=== PATIENT | female | born 1965 | race Caucasian/White ===

== ENCOUNTER → 2021-08-10 09:10 | Outpatient (BNVA) | payer SELFPAY | PROVIDERS: Visit Provider Internal Medicine | DX: Z02.79 Encounter for issue of other medical certificate (principal) ==

== ENCOUNTER → 2021-12-04 10:10 | Outpatient (BNVA) | payer SELFPAY | PROVIDERS: Visit Provider Internal Medicine | DX: Z02.79 Encounter for issue of other medical certificate (principal) ==

== ENCOUNTER → 2022-07-04 10:14 | Outpatient (BNVA) | payer SELFPAY | PROVIDERS: Visit Provider Internal Medicine | DX: Z02.79 Encounter for issue of other medical certificate (principal) ==

== ENCOUNTER → 2023-06-23 09:59 | Outpatient (BNVA) | payer SELFPAY | PROVIDERS: Visit Provider Physician Assistant Medical | DX: Z02.79 Encounter for issue of other medical certificate (principal) ==

== ENCOUNTER 2023-10-22 07:53 | Outpatient (AMB) | payer OTHER, SELFPAY ==
[2023-10-22 07:58] VITALS: BP 130/82; PULSE 78; O2SAT 98; BMI 36.5
--- NOTE | 2023-10-22 07:58 | A.OFFPC_ITS ---
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 Allergies No Known Allergies Allergy (Verified 10/22/23 08:30) Medication List - Last Reconciled 10/22/23 by Caesar Wang MD No Known Home Meds Tobacco use date assessed: 10/22/23 Dental Screening Dental Screen Date: 10/22/23 Did you have a dental visit in the last 12 months?: Yes Did you have a dental problem in the last 6 months where you did not have access to dental care?: No Was dental information given to patient?: 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 Patient is transferring her care [place] as her primary care provider has left the practice. Patient gets a rash on the abdomen and around the breast area. Currently she does not have the rash but usually comes in the summer. Slightly itchy but fade away quickly. Patient is concerned would the rash could be. She used to swim at the [facility] and has discontinued because she feared the rash was coming from swimming. Has not had a mammogram or colonoscopy done yet. PENDING SALE TO [facility] Medical History (Updated 10/22/23 @ 08:38 by Caesar Wang MD) Class 2 severe obesity with body mass index (BMI) of 35 to 39.9 with serious comorbidity Family History Mother No problems noted. Father No problems noted. Daughter Substance use disorder Daughter No problems noted. Son No problems noted. Other Mental health disorder Social History Housing: House Patient Tobacco Use Status: Former Tobacco user Tobacco use type: Cigarette e-Cigarette/Vaping Use: Currently Using Second Hand Smoke Exposure: Yes Current occupational status: employed Current occupation: [employer] Cognitive needs: No Hearing needs: No Vision needs: Yes Questionnaire PHQ-9 Over the last 2 weeks, how often have you been bothered by any of the following problems? 1. Little interest or pleasure in doing things: not at all 2. Feeling down, depressed, or hopeless: not at all 3. Trouble falling or staying asleep, or sleeping too much: not at all 4. Feeling tired or having little energy: not at all 5. Poor appetite or overeating: not at all 6. Feeling bad about yourself - or that you are a failure or have let yourself or your family down: not at all 7. Trouble concentrating on things, such as reading the newspaper or watching television: not at all 8. Moving or speaking so slowly that other people could have noticed. Or the opposite - being so fidgety or restless that you have been moving around a lot more than usual: not at all 9. Thoughts that you would be better off or of hurting yourself in some way: not at all Total score: 0 Depression Screening Interpretation: Negative Depression Screening Done: Yes Source: Developed by Drs. Jl Salvador, Angie Ramirez, Zheng Stanton and colleagues, with an educational melquiades from [employer]. Thrive Questionnaire Date Thrive assessed: 10/22/23 I am a: Patient What is your living situation today?: I have a steady place to live Within the past 12 months, did the food you bought not last and you didn't have the money to get more?: Never true Within the past 12 months, did you worry whether your food would run out before you got money to buy more?: Never true Do you have trouble paying for medicines?: No Do you have trouble getting transportation to medical appointments?: No Do you have trouble paying your heating and electricity bill?: No Do you have trouble taking care of your child, family member or friend?: No Do you have trouble with day-to-day activities such as bathing, preparing meals, shopping, managing finances, etc.?: No Are you currently unemployed and looking for a job?: No Are you interested in more education?: No Currently or been in a relationship where the following occur: no concerns reported THRIVE Score: 0 AUDIT C Alcohol Use Questionnaire (AUDIT-C) 1. How often do you have a drink containing alcohol?: Monthly or less 2. How many drinks containing alcohol do you have on a typical day when you are drinking?: 1 or 2 3. How often do you have six or more drinks on one occasion?: Never Total Score: 1 CANELO-7 AMB Questionnaire CANELO-7 Date CANELO - 7 assessed: 10/22/23 Feeling nervous, anxious, or on edge: 0 = Not at all Not being able to stop or control worryin = Not at all Worrying too much about different things: 0 = Not at all Trouble relaxin = Not at all Being so restless that it is hard to sit still: 0 = Not at all Becoming easily annoyed or irritable: 0 = Not at all Feeling afraid as if something awful might happen: 0 = Not at all Total CANELO-7 score (0-4 normal; 5-9 mild; 10-14 moderate; 15-21 severe): 0 Source: Developed by Drs. Jl Salvador, Angie Ramirez, Zheng Stanton and colleagues, with an educational melquiades from [employer]. Physical exam (Primary Care) Vital Signs: Last Vital Signs Pulse 78 10/22/23 07:58 BP 130/82 10/22/23 07:58 Pulse Ox 98 10/22/23 07:58 Oxygen Delivery Method Room Air 10/22/23 07:58 Care Plan Goal for BP management: Blood pressure is in range. On no medications. BMI result Body Mass Index 36.5 BMI Assessment/Plan discussion: High (1 lb per week weight loss suggested. Patient has joined weight watchers.) BMI High, discussed plan: lifestyle, weight reduction and dietary Tobacco/Smoking Status: Tobacco use Status Tobacco use date assessed 10/22/23 10/22/23 08:08 Patient Tobacco Use Status Former Tobacco user 10/22/23 08:08 Tobacco use type Cigarette 10/22/23 08:08 e-Cigarette/Vaping Use Currently Using 10/22/23 08:08 Are you ready to quit: No Tobacco cessation counseling provided: No PHQ-9: PHQ-9 Score PHQ-9: Total score 0 10/22/23 08:08 Depression Screening Interpretation: Negative Thrive Assessment: Date of Thrive Assessment Date Thrive assessed 10/22/23 10/22/23 08:08 Currently or been in a relationship where the following occur: no concerns reported Const General: cooperative and healthy appearing Nutritional Appearance: well nourished Orientation/consciousness: patient oriented x3 Limitations: no limitations HENMT Head: Yes normal to inspection Eyes General: appearance normal, both eyes and all related structures Neck Neck: Yes normal visual inspection Chest Chest palpation & inspection: normal palpation of entire chest wall Resp Effort & Inspection: normal respiratory effort Skin Other: Faint papular lesions on the anterior abdomen wall. No overlying scales or pustules. Neuro General: patient oriented x3 Assessment and Plan Assessment & Plan (1) Hypercholesterolemia: Code(s): E78.00 - Pure hypercholesterolemia, unspecified Plan: Patient was advised to contact us when she gets a rash again. Immediate appointment will be given. At the moment no treatment needed. Blood work has been ordered for elevated cholesterol. Will call with the results. Screening mammogram has been ordered. Patient declined a colonoscopy. However she agreed to get a Cologuard test done. I encouraged her to discontinue use of nicotine. (2) Class 2 severe obesity with body mass index (BMI) of 35 to 39.9 with serious comorbidity: Code(s): E66.01 - Morbid (severe) obesity due to excess calories Plan: Patient has joined weight lettrs. Encouraged her to diet and exercise on a regular basis. Orders: Orders Thyroid Stimulating Hormone Today E78.00 - Pure hypercholesterolemia, unspecified MM screening mammo BI Today Z12.31 - Encounter for screening mammogram for malignant neoplasm of breast Basic Metabolic Panel Today E78.00 - Pure hypercholesterolemia, unspecified Complete Blood Count no Diff Today E78.00 - Pure hypercholesterolemia, unspecified Liver Panel Today E78.00 - Pure hypercholesterolemia, unspecified Lipid Panel Today E78.00 - Pure hypercholesterolemia, unspecified UA and rflx microscopic Today E78.00 - Pure hypercholesterolemia, unspecified Referrals Cologuard Test Z12.11 - Encounter for screening for malignant neoplasm of colon Coding Level of Care Code Est Pt Level 4 (57023) Diagnoses Hypercholesterolemia E78.00 Class 2 severe obesity with body mass index (BMI) of 35 to 39.9 with serious comorbidity E66.01
== END 2023-10-22 08:23 | disposition home or self-care (01) ==
PROVIDERS: PCP Internal Medicine; Visit Provider Internal Medicine
DX: E78.00 Pure hypercholesterolemia, unspecified (principal); E66.01 Morbid (severe) obesity due to excess calories; Z68.36 Body mass index [BMI] 36.0-36.9, adult
CPT/HCPCS: 99214

== ENCOUNTER → 2024-07-09 09:43 | Outpatient (BNVA) | payer SELFPAY | PROVIDERS: PCP Internal Medicine; Visit Provider Internal Medicine | DX: Z02.79 Encounter for issue of other medical certificate (principal) ==

== ENCOUNTER → 2025-07-12 09:44 | Outpatient (BNVA) | payer SELFPAY | PROVIDERS: Visit Provider Registered Nurse | DX: Z02.79 Encounter for issue of other medical certificate (principal) ==